=== PATIENT | female | born 1990 | race African-American/Black ===

== ENCOUNTER 2018-02-26 15:27 | Emergency (ER) | payer OTHER ==
[~2018-02-26] VITALS: Ht 160 cm; Wt 65.8 kg
[2018-02-26 15:28] VITALS: BP 128/64
[2018-02-26] MEDS ORDERED: PENICILLIN V P500 MG PO (15:50)
[2018-02-26] MEDS ORDERED: IBUPROFEN 600600 M1 PO (15:50)
== END 2018-02-26 16:06 | disposition home or self-care (01) ==
LOC: ER 15:27
DX: K02.9 Dental caries, unspecified (principal); K05.10 Chronic gingivitis, plaque induced; K13.79 Other lesions of oral mucosa